=== PATIENT | female | born 1995 | race Caucasian/White ===

== ENCOUNTER 2017-09-29 22:32 | Emergency (ER) | payer BC ==
[~2017-09-29] VITALS: Ht 167.6 cm; Wt 52.2 kg
--- NOTE | 2017-09-29 22:50 | NUR ---
pt aaox4, ambulatory in asteady gait.pt c/o right thigh pain and bruising s/p metal pole fell on the pt, denies hitting head.pt able to move all ext.breathing even unalabored, abd soft non distended with +BS,denies urinary symptoms,skin w/d to touch with good skin turgor.bed in the lowest position,locked,HOB up,SR up X2 for safety, CB within reach, will continue to monitor pt
--- NOTE | 2017-09-29 22:55 | NUR ---
X-ray at bedside
--- NOTE | 2017-09-29 23:30 | NUR ---
Patient discharged to home in stable conditon. Written and verbal after care instructions given. Patient verbalizes understanding of instructions.
== END 2017-09-29 23:31 | disposition home or self-care (01) ==
LOC: ER 22:33
DX: S90.212A Contusion of left great toe with damage to nail, initial encounter (principal); W19.XXXA Unspecified fall, initial encounter; Y93.89 Activity, other specified; Y92.89 Other specified places as the place of occurrence of the external cause; Y99.8 Other external cause status
CPT/HCPCS: 73630; A4663